=== PATIENT | female | born 1970 | race Caucasian/White ===

== ENCOUNTER 2019-07-23 06:18 | Day surgery (SDC) | payer BC, SELFPAY ==
[2019-07-23 06:29] VITALS: BP 110/54; PULSE 64; RESP 12; TEMP 36.6; O2SAT 99
[2019-07-23] MEDS: Lactated Ringers 1,000 ML 80 ML IV ×2 (06:54→08:14)
--- NOTE | 2019-07-23 07:03 | HPE_ITS ---
Date of service: 07/23/19 Time of Service: 07:03 History of Present Illness History of Present Illness Chief Complaint: Symptomatic left bunion deformity Narrative: 48-year-old white female with multiyear history of symptomatic left b union deformity interfering with shoe gear pain has worsened in spite of the change of shoe gear various paddings and shoe inserts she is opting for surgical correction. FORMERLY [facility], [facility] Medical History ADHD (Acute) Bunion of great toe of left foot (Acute) Surgical History History of lumpectomy of left breast (Acute) Hx of colonoscopy (Chronic) Social History Smoking/Tobacco Use Status: Former Tobacco Use Quit Date: 06/23/90 Alcohol Intake: current Alcohol Intake frequency: a few times a week Alcohol type: wine Substance use type: does not use Do you feel safe at home: Yes Do you feel safe in your relationship?: Yes Meds Home Medications and Allergies Home Medications Medication Instructions Recorded Confirmed Type cyanocobalamin (vitamin B-12) 1,000 mcg PO DAILY 07/22/19 07/23/19 History [Vitamin B-12] escitalopram oxalate [Lexapro] 20 mg PO DAILY 07/22/19 07/23/19 History Allergies Allergy/AdvReac Type Severity Reaction Status Date / Time No Known Allergies Allergy Unverified 07/22/19 14:32 Exam Narrative Exam Narrative: Kelle is a 48-year-old white female well developed. Heart had regular rate and rhythm without gallops rubs murmurs lung stevenson were clear uvular is midline airway looks assessable abdomen is soft and nontender, BSx4 Vascular exam DP and PT pulses are manually palpable at the ankles graded 2 out of 4 bilaterally. Capillary fill is under 3 seconds to all toes there is no peripheral edema calves are soft to palpation no findings of DVTs Muscle groups of 5 out of 5 bilaterally skeletal exam is remarkable for moderate left HAV deformity. Tenderness is appreciated medially over the first metatarsal head. Range of motion is generally good lateral rotation of the hallux is appreciated without crepitance it appears reducible. The sesamoid complex is asymptomatic with manipulation the remaining forefoot joints were otherwise grossly benign. Neurologically grossly intact toes downgoing no deficits appreciated Results Last Vital Signs Temp 36.6 C 07/23/19 06:29 Pulse 64 07/23/19 06:29 Resp 12 07/23/19 06:29 BP 110/54 L 07/23/19 06:29 Pulse Ox 99 07/23/19 06:29
[2019-07-23] MEDS: ceFAZolin 1 GM/50 ML BAG IVPB (07:31)
[2019-07-23] MEDS: Bupivacaine 0.5% Pres-Free 30 ML VIAL (07:40)
[2019-07-23] MEDS: Lidocaine 1% Multi-Dose 50 ML VIAL (07:40)
[2019-07-23] MEDS: Dexamethasone 4 MG/ML VIAL (08:17)
--- NOTE | 2019-07-23 08:37 | W.PM.DSUDISC ---
Discharge Plan Disposition Patient Disposition: HOME Condition: Good Discharge Details Reason For Visit: Bunionectomy left foot Attending Provider: Onofre Nath Primary Care Provider: Sarah Beth Boyer Home Meds and New Rx's Prescriptions: New hydrocodone-acetaminophen [[place]] 5-325 mg tablet 1 tab PO Q6H PRN (Reason: pain, moderate) Qty: 7 RF: 0 Continued cyanocobalamin (vitamin B-12) [Vitamin B-12] 1,000 mcg Tablet 1,000 mcg PO DAILY RF: 0 escitalopram oxalate [Lexapro] 20 mg Tablet 20 mg PO DAILY RF: 0 Discharge Instructions Activity:: Elevate Remove Dressings/Wound Care:: Do Not Remove Shower/Bathe:: Cover Diet:: Normal Diet Discharge Orders Discharge Orders: Discharge Order (Routine); Ordered 07/23/19 Ordered By: Onofre Nath Other Ambulatory Orders: Ibuprofen (Routine) Facility: [facility] - Location: Laboratory Nonpatient Ordered By: Onofre Nath DS: Diagnosis Discharge Diagnosis (1) Bunion of great toe of left foot: Status: Acute
[2019-07-23 09:16] VITALS: BP 106/67; PULSE 58; RESP 16; TEMP 36.3; O2SAT 97
--- NOTE | 2019-07-23 13:55 | ROE_ITS ---
DATE OF PROCEDURE: July 23, 2019 PREOPERATIVE DIAGNOSIS: Left hallux abductovalgus deformity. POSTOPERATIVE DIAGNOSIS: Same. PROCEDURE: Roberto type bunionectomy with internal screw fixation, 2.7 Synthes x 2. SURGEON: Onofre Nath D.P.M. ANESTHESIA: IV General. ANESTHESIA PROVIDER: Efra Zendejas CRNA OPERATIVE INDICATIONS: 48-year-old female with chronic pain associated with a left bunion deformity which has not responded well to nonoperative treatments. She understands risks and complications of surgery pertaining to pain, scarring, infection, stiffness of the joint, overcorrection, undercorrect ion, malunion, nonunion, delayed union of the osteotomy, symptoms associated with the retained hardwa re. Informed consent has been obtained. No promises made to the final outcome of surgery. REPORT OF OPERATION: Kelle was brought to the operative suite and placed in the supine position w here the left foot was prepped and draped in the usual sterile podiatric fashion. A time-out was per formed in the usual fashion. Anesthesia being obtained, the left foot was exsanguinated, a well-padd ed ankle tourniquet inflated to 250 mmHg. Attention was directed to the left first MPJ where a 5 cm dorsal medial incision was made parallel to the EHL tendon. The incision was deepened in controlled depth fashion; hemostasis acquired with electrocautery. Dissection was carried down to the joint cap go. A lateral release was performed, consisting of a lateral capsulotomy and adductor tendon relea se. An inverted-L capsulotomy was then performed medially. The head of the first metatarsal deliver ed into the wound. Large medial hypertrophy was appreciated. The articular surfaces looked viable. With power instrumentation the medial hyperostosis was resected. An offset V osteotomy was then cre ated through the first metatarsal neck. The head was translocated laterally, impacted and fixated wi th two Synthes 2.7 cortical screws, 14 mm and 16 mm in length. The medial shelf was resected; all ro ugh and bony edges rasped smooth. Copious irrigation was performed. The joint capsule was repaired with simple interrupted suture #3-0 Vicryl with a medial capsulorrhaphy being performed. The subcuta neous layer was brought together with #4-0 Vicryl and then a running subcuticular stitch of #4-0 Panola cryl used to coapt the skin. Four milligrams of dexamethasone phosphate was infused deeply into the wound. Mastisol, half-inch Steri-Strips were applied, followed by gauze fluff compression dressings. The tourniquet was released with vascularity returning immediately to all toes. Kelle left the OR with vital signs stable, vascular status intact. Sharp and sponge counts were correct. She will be followed by me in the office next week. cc: Sarah Beth Boyer N.P.
== END 2019-07-23 09:38 | disposition home or self-care (01) ==
PROVIDERS: PCP Internal Medicine; Visit Provider Podiatrist
PROC: (CPT 28292; principal; 2019-07-23 07:30)
DX: M20.12 Hallux valgus (acquired), left foot (principal); M21.612 Bunion of left foot; M79.672 Pain in left foot
CPT/HCPCS: 28296; 99223; J0690; J1100; J1885; J2001; J2250; J2405; J3010